=== PATIENT | male | born 1995 | race Caucasian/White ===

== ENCOUNTER 2023-01-13 23:22 | Emergency (ER) | payer MEDICAID ==
[~2023-01-13] VITALS: Ht 165.1 cm; Wt 68.0 kg
[2023-01-13 23:35] VITALS: BP_SYST 121
--- NOTE | 2023-01-13 23:35 | NUR ---
Patient triage and placed in waiting room. VSS and patient appears in no acute distress at this time. Accompanied by self, awaiting available bed, and MD Blankenship notified of need for MSE.
--- NOTE | 2023-01-14 02:42 | NUR ---
ER MD Blankenship examing patient in triage room.
--- NOTE | 2023-01-14 03:37 | NUR ---
Patient given written and verbal discharge instructions and verbalizes understanding. ER MD discussed with patient the results and treatment provided. Patient in stable condition. ID arm band removed. no Rx of given. Patient educated on pain management and to follow up with PMD. Pain Scale 0/10. Opportunity for questions provided and answered. Medication side effect fact sheet provided.
[2023-01-14 03:40] VITALS: BP_SYST 123
== END 2023-01-14 03:40 | disposition home or self-care (01) ==
LOC: SED 23:22
DX: R07.89 Other chest pain (principal); R06.02 Shortness of breath; R51.9 Headache, unspecified; Z79.899 Other long term (current) drug therapy
CPT/HCPCS: 93005; 99283